=== PATIENT | male | born 1940 | race African-American/Black ===

== ENCOUNTER 2018-06-04 13:40 | Emergency (ER) | payer MEDICARE, BC ==
[~2018-06-04] VITALS: Ht 165.1 cm; Wt 69.0 kg
[~2018-06-04 13:40] MED LIST: ATOR10TA PO; CLOP75TA16 PO; COR6 PO; FAMO-135 PO; ISOS30TA PO; MECL-127 PO; METF500T PO; NITR0.4T SL; RAMI5CAP13 PO; SIMV20TA6 PO
[2018-06-04 16:22] LABS: BASOPHILS % 0.6 % (0.0-2.0); CHLORIDE 113 mEq/L (98-107); EOSINOPHILS % 0.6 % (0.0-5.0); HEMATOCRIT. 37.3 % (42.0-52.0); HEMOGLOBIN. 12.8 g/dL (14.0-18.0); LYMPHOCYTES % 26.6 % (20.0-50.0); MEAN CORPUSCULAR HEMOGLOBIN 33.1 pg (28.0-32.0); MEAN CORPUSCULAR VOLUME 96.2 fL (80.0-94.0); MEAN PLATELET VOLUME 6.9 fl (7.4-10.4); MONOCYTES % 13.6 % (2.0-8.0); NEUTROPHILS % 58.6 % (40.0-76.0); PLATELET 162 x1000/uL (130-400); RED BLOOD CELL COUNT 3.88 mill/uL (4.7-6.1); RED CELL DISTRIBUTION WIDTH 16.7 % (11.6-14.6)
[2018-06-04 18:52] VITALS: BP 143/77
== END 2018-06-04 18:56 | disposition home or self-care (01) ==
LOC: ER 14:00
DX: R53.1 Weakness (principal); E11.9 Type 2 diabetes mellitus without complications; E78.00 Pure hypercholesterolemia, unspecified; I10 Essential (primary) hypertension; Z95.0 Presence of cardiac pacemaker
CPT/HCPCS: 36415; 80048; 84484; 85025; 93005; 99285